=== PATIENT | male | born 1965 | race Native Hawaiian/Other Pacific Islander ===

== ENCOUNTER 2016-06-06 18:55 | Emergency (ER) | payer MEDICARE, MEDICAID ==
--- NOTE | 2016-06-06 19:05 | Emergency Department Record ---
History of Present Illness - General Chief complaint: Flank Pain Stated complaint: POSSIBLY KIDNEY STONE Time Seen by Provider: 06/06/16 18:56 Source: Patient Mode of Arrival: Ambulatory Limitations: No limitations - History of Present Illness Initial comments: 51 yo male presents to ED with a CC of left sided flank pain symptoms radiating down tot eh scrotal area on the left for the past 3-4 days. Patient denies urinary frequency or burning, denies fevers, chills, nausea, or vomiting symptoms. Patient denies health problems other than depression. MD Complaint: Other (flank pain) Onset/Timin -: Days(s) Location: Left flank Radiation: LLQ Severity: Moderate Quality: Aching Consistency: Constant Improves with: None Worsens with: None - Related Data Home Medications Medication Instructions Recorded Confirmed Last Taken Dextroamphetamine/Amphetamine 30 mg PO BID tab 06/06/16 06/06/16 06/06/16 [Adderall] Sertraline HCl 100 mg PO DAILY #30 06/06/16 06/06/16 06/06/16 Previous Rx's Medication Instructions Recorded Cephalexin [Keflex] 500 mg PO TID #21 cap 06/06/16 Allergies Allergy/AdvReac Type Severity Reaction Status Date / Time ciprofloxacin [From Cipro] Allergy HIVES Unverified 06/06/16 18:30 ciprofloxacin HCl Allergy HIVES Unverified 06/06/16 18:30 [From Cipro] amytriptilene Allergy HIVES Uncoded 06/06/16 18:30 Review of Systems Constitutional: Denies: Chills, Fever, Malaise, Night sweats Eyes: Denies: Eye discharge, Eye pain ENT: Denies: Congestion, Ear pain, Epistaxis Respiratory: Denies: Cough, Dyspnea Cardiovascular: Denies: Chest pain, Dyspnea on exertion Endocrine: Denies: Fatigue, Heat or cold intolerance Gastrointestinal: Denies: Abdominal pain, Nausea, Vomiting Musculoskeletal: Reports: Back pain. Denies: Arthralgia, Gout, Joint swelling, Neck pain Skin: Denies: Bruising, Change in color Neurological: Denies: Abnormal gait, Confusion, Headache, Numbness, Seizure Psychiatric: Denies: Anxiety Hematological/Lymphatic: Denies: Anemia, Blood Clots Physical Exam - General General Appearance: Alert, Oriented x3, Cooperative, No acute distress, Other ( pain well controlled on examination) Limitations: No limitations - Head Head exam: Atraumatic, Normocephalic, Normal inspection Head exam detail: negative: Abrasion, Contusion, Tejeda's sign, General tenderness, Hematoma, Laceration - Eye Eye exam: Normal appearance. negative: Conjunctival injection, Periorbital swelling, Periorbital tenderness, Scleral icterus - ENT Ear exam: negative: Auricular hematoma, Auricular trauma Nasal Exam: negative: Active bleeding, Discharge, Dried blood, Foreign body Mouth exam: negative: Drooling, Laceration, Tongue elevation - Neck Neck exam: Normal inspection. negative: Tenderness - Respiratory Respiratory exam: Normal lung sounds bilaterally. negative: Respiratory distress, Rhonchi, Stridor, Wheezes - Cardiovascular Cardiovascular Exam: Regular rate, Normal rhythm, Normal heart sounds - GI/Abdominal GI/Abdominal exam: Soft. negative: Distended, Rebound, Rigid, Tenderness - Rectal Rectal exam: Deferred - exam: Deferred - Extremities Extremities exam: Normal inspection. negative: Pedal edema, Tenderness - Back Back exam: Reports: CVA tenderness (L). Denies: CVA tenderness (R) - Neurological Neurological exam: Alert, Normal gait, Oriented X3 - Psychiatric Psychiatric exam: Normal affect, Normal mood - Skin Skin exam: Normal color. negative: Abrasion Type of lesion: negative: abrasion Course - Reevaluation(s) Reevaluation #1: 06/06/16 19:43 Labs reviewed, 3-5 WBCs, 1+ Bacteria present with no evidence of contamination. Labs are otherwise grossly unremarkable for an acute process. Reevaluation #2: 06/06/16 20:02 CT Abdomen and Pelvis: No acute process. Patient was updated on all results, will initiate treatment with Keflex as directed for possible infection. Patient verbalizes understanding of all instructions, and appears stable for discharge at this time. Medical Decision Making - Lab Data Result diagrams: 06/06/16 19:15 06/06/16 19:15 Disposition Disposition: Discharge Clinical Impression: Urinary Tract Infection Qualifiers: Urinary tract infection type: acute cystitis Hematuria presence: with hematuria Qualified Code(s): N30.01 - Acute cystitis with hematuria Disposition: Home, Self-Care Condition: (2) Stable Instructions: Urinary Tract Infection in Men (ED) Additional Instructions: Return to ED if your symptoms worsen or if you have any concerns. Keflex as directed. Follow-up with your family doctor in 3-5 days as directed. Prescriptions: Cephalexin [Keflex] 500 mg PO TID #21 cap Forms: Patient Portal Access Time of Disposition: 20:05
[2016-06-06 19:24] LABS: BASO % 0.3 % (0-6); EOS % 1.8 % (0-6); GRAN % 64.6 % (47-80); HEMATOCRIT 41.3 % (42.0-52.0); HEMOGLOBIN 14.1 gm/dl (14.0-18.0); MEAN CELL VOLUME 91.4 fl (81-97); MEAN CORPUSCULAR HEMOGLOBIN 31.2 pg (27-33); MEAN CORPUSCULAR HGB CONC 34.1 g/dl (32-36); MEAN PLATELET VOLUME 10.1 fl (7.4-10.4); MONO % 8.3 % (0-9); PLATELET COUNT 362 K/uL (130-400); RED BLOOD COUNT 4.52 M/uL (4.40-5.70); RED CELL DISTRIBUTION WIDTH 12.6 % (11.5-14.5); WHITE BLOOD COUNT W/O DIFF 10.5 K/uL (4.2-12.2)
[2016-06-06 19:27] LABS: URINE APPEARANCE CLEAR; URINE BILIRUBIN NEGATIVE (NEGATIVE); URINE BLOOD SMALL (NEGATIVE); URINE COLOR YELLOW; URINE GLUCOSE (UA) NEGATIVE (NEGATIVE); URINE KETONE NEGATIVE (NEGATIVE); URINE LEUKOCYTE ESTERASE NEGATIVE (NEGATIVE); URINE NITRITE POSITIVE (NEGATIVE); URINE PROTEIN NEGATIVE (NEGATIVE); URINE UROBILINOGEN 0.2 E.U./dL (0.20 - 1.00)
[2016-06-06 19:33] LABS: BLOOD UREA NITROGEN 13 mg/dL (9-20); CARBON DIOXIDE 24.2 mmol/L (22-30); CREATININE 0.8 mg/dL (0.66-1.25); EST GLOMERULAR FILTRATION RATE > 60 ml/min; GLUCOSE,RANDOM 92 mg/dL (70-110)
[2016-06-06 19:34] LABS: ALB/GLOB RATIO 1.6 (1.1-1.8); ALBUMIN 4.5 gm/dL (3.5-5.0); ALKALINE PHOSPHATASE 119 U/L (38-126); ALT/SGPT 27 U/L (21-72); ANION GAP 13.8 (7-16); AST/SGOT 20 U/L (17-59); BILIRUBIN,TOTAL 0.25 mg/dL (0.2-1.3); TOTAL PROTEIN 7.4 gm/dL (6.3-8.2)
[2016-06-06 19:40] LABS: URINE BACTERIA 1+; URINE EPITHELIAL CELLS 0 - 2 (FEW); URINE RBC 0 - 2 (NONE SEEN)
== END 2016-06-06 20:14 | disposition home or self-care (01) ==
LOC: ER 18:55
DX: N30.01 Acute cystitis with hematuria (principal); R10.32 Left lower quadrant pain
CPT/HCPCS: 74176; 80053; 81001; 85025; 99283; 99284